=== PATIENT | female | born 1970 ===

== ENCOUNTER 2019-01-17 11:27 | Outpatient (CLI) | payer OTHER | END 2019-01-17 11:50 | disposition home or self-care (01) | LOC: MAMO-SONO 11:27 | DX: D25.9 Leiomyoma of uterus, unspecified (principal); Z12.31 Encounter for screening mammogram for malignant neoplasm of breast; N63.10 Unspecified lump in the right breast, unspecified quadrant; N63.20 Unspecified lump in the left breast, unspecified quadrant ==

== ENCOUNTER → 2019-01-17 14:21 | Outpatient (CLI) | payer OTHER | END | disposition home or self-care (01) | LOC: LAB 08:41 | DX: D50.8 Other iron deficiency anemias (principal); N83.209 Unspecified ovarian cyst, unspecified side; E03.8 Other specified hypothyroidism; N39.0 Urinary tract infection, site not specified; E78.00 Pure hypercholesterolemia, unspecified ==